=== PATIENT | male | born 1955 | race African-American/Black ===

== ENCOUNTER 2019-07-30 07:33 | Day surgery (SDC) | payer OTHER ==
[2019-07-28 12:32] VITALS: BMI 22.2
[2019-07-30] MEDS ORDERED: PROPOFOL 20 ML ONE ×2 (08:23)
[2019-07-30 09:27] VITALS: PULSE 68
[2019-07-30 09:36] VITALS: BP 120/67; TEMP 97.9
== END 2019-07-30 09:36 | disposition home or self-care (01) ==
LOC: FASU-ENDO 07:33
PROVIDERS: ATTEND Internal Medicine Gastroenterology
PROC: 0DJD8ZZ Inspection of Lower Intestinal Tract, Via Natural or Artificial Opening Endoscopic (ICD-10-PCS; principal; 2019-07-30 08:30)
DX: Z86.010 Personal history of colon polyps (principal)